=== PATIENT | male | born 1975 | race Two or more races ===

== ENCOUNTER → 2021-04-03 07:37 | Outpatient (BNVA) | payer SELFPAY | PROVIDERS: PCP Internal Medicine | DX: Z13.89 Encounter for screening for other disorder (principal) | CPT/HCPCS: Q3014 ==

== ENCOUNTER 2025-08-28 09:50 | Outpatient (AMB) | payer OTHER, SELFPAY ==
[2025-08-28 10:03] VITALS: BMI 28.2
--- NOTE | 2025-08-28 10:03 | A.PHYSOV_ITS ---
Vital Signs 08/28/25 10:03 Height 5 ft 7 in Weight 180 lb BMI 28.2 Intake Visit Reasons: 2M FU Intake Note: Patient is a 49 year old male in office day for a 2 month follow up visit. 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 He reports pain in the knuckle of his third finger, which is exacerbated when he makes a fist, and he is unable to squeeze his hand. He has a remote history of punching duenas. He is currently taking gabapentin 800 mg three times a day and Percocet pain medication for severe breakthrough pain, for which he requires refills. The patient has an upcoming appointment with his primary care physician in October. He also needs medical clearance for a planned toe surgery and requires assistance with disability paperwork. Pain Description - Location: Pain is located in the knuckle of the third finger. - Exacerbating factors: Pain is triggered by making a fist and squeezing. - Impact: The pain prevents him from making a fist. FOR[facility]LY [facility], [facility] Surgical History History of hip replacement History of lumbar fusion History of fusion of cervical spine Social History (Updated 08/28/25 @ 10:05 by Cammie Guallpa MA) Alcohol intake: current Alcohol intake frequency: holidays/special occasions only Patient Tobacco Use Status: Former Tobacco user Substance Use Type: Marijuana Review of Systems Narrative Review of Systems - Musculoskeletal: Reports pain in the knuckle of the third finger, especially when making a fist. Physical Exam Exam Exam: Physical Exam I he is tender to the 3rd digit metacarpophalangeal joint to palpation. Full range of motion. Lumbar Spine: Examination of his lumbar spine, there is no visible swelling or deformity. He is tender to lower lumbar facets. He is otherwise nontender. Full range of motion of his lumbar spine. He does have an increase in pain with facet loading. Special Tests: Lhermittes sign was negative Heel Toe walk is normal Left straight leg raise: Negative Right straight leg raise: Negative Special tests Jennifer test is negative Ganslen's test is negative SI Joint compression test negative Zora test negative Piriformis stretch is negative Lower Extremities: Full range of motion bilateral lower extremities. No calf pain or edema. Neuro: Sensation: Intact to lower extremities bilaterally Strength L2 (Psoas): 5/5 on the left and 5/5 on the right. L3 (Quads): 5/5 on the left and 5/5 on the right. L4 (Ant tibialis): 5/5 on the left and 5/5 on the right. L5 (EHL) 5/5 on the left and 5/5 on the right. S1 (Gastroc): 5/5 on the left and 5/5 on the right. DTR L4: (Patellar) Left 2 Right 2 S1: (Achilles) Left 0 Right 0 Babinski Downgoing No pathologic clonus. No involuntary movement. Vital Signs: BMI result Body Mass Index 28.2 Office Procedures AMB Finger Injection AMB Finger Injection Details: Patient was educated about the risks, complications and benefits of right 3rd digit metacarpophalangeal joint injection. He is eager to proceed. He was cleansed over the dorsum of the metacarpophalangeal joint of the 3rd digit with iodine. He was then anesthetized with ethyl chloride. I then injected 20 mg of Kenalog and 1 mL of 2% lidocaine. He was cleansed with an alcohol prep and a Band-Aid was applied. Patient tolerated the procedure well without immediate complication. Finger Injection - : Right All charges added?: Procedure code (CPT) selection complete Office Meds Kenalog 40 mg/mL suspension for injection Performing Provider: BREANNA Norman Performing Location: [facility] Administered by: BREANNA Norman on 08/28/25 13:00 Dose Route Admin Location Dispensed Lot Number Expiration Date [facility] [employer] 20 mg intra-articular 1 mL [id number] [employer] Total Dispensed Waste 1 mL 50 % lidocaine (PF) 20 mg/mL (2 %) injection solution Performing Provider: BREANNA Norman Performing Location: [facility] Administered by: BREANNA Norman on 08/28/25 13:00 Dose Route Admin Location Dispensed Lot Number Expiration Date [facility] [employer] 20 mg intra-articular 50 mL [id number] Total Dispensed Waste 50 mL 0 % Assessment & Plan Assessment & Plan (1) Lumbar radiculopathy: Code(s): M54.16 - Radiculopathy, lumbar region Category: Medical (2) Lumbar spondylosis: Code(s): M47.816 - Spondylosis without myelopathy or radiculopathy, lumbar region Category: Medical (3) Osteoarthritis, hand: Code(s): M19.049 - Primary osteoarthritis, unspecified hand Category: Medical Plan Pain Management - Analgesia: The patient is currently taking gabapentin 800 mg three times daily and an unspecified pain medication. - Activities of Daily Living: The patient reports being unable to make a fist or squeeze his hand due to pain in the third finger. Plan Patient was informed and verbally consented to the use of an ambient scribe for clinic note documentation during this visit. 1. Arthralgia Of Finger The patient's third finger pain, which occurs when making a fist, is suggestive of arthritis, possibly post-traumatic given his remote history. Two options were offered to manage the inflammation: a cortisone injection or oral prednisone. The patient agreed to proceed with a cortisone injection. 2. Medication Management The patient requested refills for his current medications. Prescriptions for gabapentin 800 mg taken three times daily and an unspecified pain medication will be refilled. 3. Preoperative Evaluation The patient requires medical clearance for an upcoming toe surgery. He is scheduled to see his primary care physician in October for this purpose. 4. Disability Paperwork Assistance The patient requires assistance with disability paperwork. He was advised to go to the disability office to initiate the process, and office staff will help complete the necessary forms. Discussion Notes I discussed the likely cause of the patient's third finger pain as arthritis and offered treatment options, including a cortisone injection or oral prednisone. The patient consented to a cortisone injection. I explained that the injection typically helps within a few days and mentioned the potential for it to temporarily raise blood sugar. We also arranged for refills of his gabapentin and other pain medication. I advised him to see his primary care provider for preoperative clearance for his toe surgery and to go to the disability office to start the process for his paperwork, which my staff will help complete. Patient Instructions - You will receive a cortisone injection in your finger today, which should help with the pain. - We are sending refills for your gabapentin and other pain medicine to your pharmacy. - Make sure to visit the disability office to start your paperwork process; our office will assist with filling out the forms. - You will need to get medical clearance from your primary care doctor before your scheduled toe surgery. - Follow up with your primary care doctor in October as planned. Orders: Orders AMB Finger Injection Today M19.049 - Primary osteoarthritis, unspecified hand Medications: New gabapentin 800 mg PO TID 90 tabs 6RF 30 days M47.816 - Spondylosis without myelopathy or radiculopathy, lumbar region, M54.16 - Radiculopathy, lumbar region oxycodone-acetaminophen 5-325 mg (Percocet) Partial Fill upon patient request. 1 tab PO Q6H PRN 28 tabs 0RF pain 7 days M47.816 - Spondylosis without myelopathy or radiculopathy, lumbar region, M54.16 - Radiculopathy, lumbar region Coding Level of Care Code Tele Est Pt Level 4 (29801) Diagnoses Lumbar radiculopathy M54.16 Lumbar spondylosis M47.816 Osteoarthritis, hand M19.049 CPT Codes AMB Finger Injection - Carpal Tunnel Therapeutic Injection - : Right ([id number])
== END 2025-08-28 10:36 | disposition home or self-care (01) ==
LOC: HO.HPHYS 09:50
PROVIDERS: PCP Internal Medicine; Visit Provider Physician Assistant
DX: M54.16 Radiculopathy, lumbar region (principal); M47.816 Spondylosis without myelopathy or radiculopathy, lumbar region; M19.049 Primary osteoarthritis, unspecified hand
CPT/HCPCS: 20600; 99214

== ENCOUNTER → 2025-08-28 09:50 | Outpatient (BNVA) | payer OTHER, SELFPAY | PROVIDERS: PCP Internal Medicine; Visit Provider Physician Assistant | DX: M79.644 Pain in right finger(s) (principal); M19.041 Primary osteoarthritis, right hand; M47.26 Other spondylosis with radiculopathy, lumbar region; Z79.899 Other long term (current) drug therapy | CPT/HCPCS: 20600; J2003; J3301 ==